=== PATIENT | male | born 1960 | race African-American/Black ===

== ENCOUNTER 2024-11-19 01:11 | Emergency (ER) | payer MEDICAID, OTHER ==
[~2024-11-19] VITALS: Ht 165.1 cm; Wt 65.0 kg
[~2024-11-19 01:11] MED LIST: AMLO5TAB88 PO; ASPI-1406 PO; LIP40 PO
[2024-11-19 01:21] VITALS: BP 149/80; PULSE 100; RESP 16; TEMP 37; O2SAT 99
[2024-11-19] MEDS ORDERED: CEPH500C2 MT (03:51)
== END 2024-11-19 04:36 | disposition home or self-care (01) ==
LOC: ER 01:11
DX: L08.9 Local infection of the skin and subcutaneous tissue, unspecified (principal); E11.9 Type 2 diabetes mellitus without complications; I10 Essential (primary) hypertension; Z86.73 Personal history of transient ischemic attack (TIA), and cerebral infarction without residual deficits; Z79.899 Other long term (current) drug therapy; Z79.82 Long term (current) use of aspirin
CPT/HCPCS: 99283